=== PATIENT | female | born 1950 | race Caucasian/White ===

== ENCOUNTER → 2016-06-26 | Outpatient (CLI) | payer OTHER | LOC: MMPC 10:00 | PROVIDERS: ATTEND Orthopaedic Surgery | DX: S80.01XD Contusion of right knee, subsequent encounter (principal) | CPT/HCPCS: 99212; G0463 ==

== ENCOUNTER → 2016-08-23 | Outpatient (CLI) | payer OTHER | LOC: MMPC 09:00 | PROVIDERS: ATTEND Family Medicine | DX: J06.9 Acute upper respiratory infection, unspecified (principal) | CPT/HCPCS: 99213; G0463 ==

== ENCOUNTER → 2016-09-04 | Outpatient (CLI) | payer OTHER ==
--- NOTE | 2016-09-04 14:59 | DI ---
PA /LATERAL CHEST X-RAY, 09/04/2016 2:06 PM : Clinical History: Upper respiratory infection. Previous Exam: 07/29/2008. There is no acute soft tissue or bony abnormality. There is prominent dextroscoliosis of the midthora cic spine. Heart size is normal. Lungs are clear. Mediastinal structures are normal. There are no pul monary nodules. Reading: Normal chest x-ray. Scoliosis.
== END ==
LOC: MOB RAD 14:09
PROVIDERS: ATTEND Physician Assistant
DX: R06.02 Shortness of breath (principal); R05 Cough; J06.9 Acute upper respiratory infection, unspecified
CPT/HCPCS: 71020

== ENCOUNTER → 2016-09-20 | Outpatient (CLI) | payer OTHER | LOC: MMPC 09:00 | PROVIDERS: ATTEND Family Medicine | DX: R05 Cough (principal); J30.9 Allergic rhinitis, unspecified; K64.8 Other hemorrhoids | CPT/HCPCS: 99213; G0463; 90670 ==

== ENCOUNTER → 2016-10-16 | Outpatient (CLI) | payer OTHER ==
--- NOTE | 2016-10-16 13:31 | EKG ---
[address] [address] Measurements Intervals Crystal Rate: 60 P: 57 DE: 183 QRS: -28 QRSD: 114 T: 48 QT: 422 QTc: 422 Interpretive Statements SINUS RHY INCOMPLETE RIGHT BUNDLE BRANCH BLOCK No previous ECG available for comparison Electronically Signed On 10-16-16 17:49:49 MDT by Fly Espinosa [email or web address]
[2016-10-16 13:47] LABS: CHOL/HDL RATIO 3.83 RATIO (0-4.0)
[2016-10-16 13:48] LABS: BLOOD UREA NITROGEN 13 mg/dL (7-22); BUN/CREATININE RATIO 21.66 (6-20); CALCIUM 9.1 mg/dL (8.7-10.7); EST GLOMERULAR FILTRATION > 60 (>60 ml/min/1.73m(2)); SERUM ALBUMIN 3.9 g/dL (3.5-4.8)
[2016-10-16 13:54] LABS: HEMATOCRIT 44.6 % (37.0-47.0); HEMOGLOBIN 15.2 g/dL (12.0-16.0); MEAN CORPUSCULAR HEMOGLOBIN 27.8 PG (27-31); MEAN CORPUSCULAR HGB CONC 34.1 g/dL (33-37); MEAN CORPUSCULAR VOLUME 81.7 FL (81-99); RED BLOOD COUNT 5.46 10^6/uL (4.20-5.40)
[2016-10-16 13:55] LABS: BASOPHILS # (AUTO) 0.09 10*3/UL; EOSINOPHILS # (AUTO) 0.36 10*3/UL; EOSINOPHILS % (AUTO) 8.1 % (0-8); LYMPHOCYTES # (AUTO) 1.24 10*3/uL; MEAN PLATELET VOLUME 10.6 FL (7.4-12.2); MONOCYTES # (AUTO) 0.46 10*3/UL (0.3-0.8); MONOCYTES % (AUTO) 10.3 % (5-15); NEUTROPHILS # (AUTO) 2.31 10*3/UL; NEUTROPHILS % (AUTO) 51.7 % (50-80); PLATELET MORPHOLOGY COMMENT NORMAL MORPHOLOGY (NORM); WBC MORPHOLOGY COMMENT NORMAL MORPHOLOGY (NORM)
[2016-10-16 13:56] LABS: RBC MORPHOLOGY COMMENT NORMAL MORPHOLOGY (NORM)
[2016-10-16 14:04] LABS: FREE T4 (FREE THYROXINE) 1.08 ng/dL (0.93-1.71)
== END ==
LOC: MOB LAB 11:54
PROVIDERS: ATTEND Family Medicine
DX: R07.9 Chest pain, unspecified (principal); I45.10 Unspecified right bundle-branch block
CPT/HCPCS: 36415; 80053; 80061; 84439; 84443; 84484; 85025; 93005; 93010